=== PATIENT | female | born 1975 | race Caucasian/White ===

== ENCOUNTER 2019-03-02 13:10 | Emergency (ER) | payer SELFPAY ==
[~2019-03-02] VITALS: Ht 157.5 cm; Wt 77.3 kg
[2019-03-02 13:30] VITALS: Ht 157.5 cm; Wt 77.3 kg
[2019-03-02 14:30] LABS: BASOPHIL % 0.3 % (0-2)
[2019-03-02 14:32] LABS: PLATELET COUNT 429 x10^3mcL (130-400)
[2019-03-02 16:46] VITALS: BP 112/69
== END 2019-03-02 16:46 | disposition home or self-care (01) ==
LOC: ED 13:10
DX: N93.8 Other specified abnormal uterine and vaginal bleeding (principal); D64.9 Anemia, unspecified
CPT/HCPCS: 36415